=== PATIENT | female | born 1975 | race Caucasian/White ===

== ENCOUNTER → 2016-11-01 | Outpatient (CLI) | payer OTHER ==
--- NOTE | 2016-11-01 07:51 | US ---
EXAMINATION TYPE: US abdomen limited DATE OF EXAM: 11/01/2016 7:30 AM COMPARISON: NONE CLINICAL HISTORY: K59.09 Constipation. EXAM MEASUREMENTS: Liver Length: 14.5cm Gallbladder Wall: 0.1 cm CBD: 0.2 cm Right Kidney: 10.8 x 4.2 x 5.1 cm cm TECHNOLOGIST IMPRESSION: wnl Pancreas: wnl Liver: wnl Gallbladder: small 0.23 cm possible polyp non gravity dependent Evidence for sonographic Gomez's sign: no CBD: wnl Right Kidney: wnl IMPRESSION: 1. Possible tiny polyp or gallstone within the gallbladder.
== END | disposition home or self-care (01) ==
LOC: RADUSWWP 07:09
PROVIDERS: ATTEND Family Medicine
DX: K59.00 Constipation, unspecified (principal)
CPT/HCPCS: 76705

== ENCOUNTER 2016-12-09 06:02 | Day surgery (SDC) | payer OTHER ==
[2016-12-07 09:25] VITALS: BMI 32.9
[~2016-12-09 06:02] MED LIST: DEXAMETHASONE SOD PHOSPHATE 10 MG/ML 1 ML VIAL IV ONE; FAMOTIDINE 20 MG/2 ML VIAL IV PRN; HEPARIN SODIUM,PORCINE 5,000 UNIT/ML 1 ML VIAL SQ ONE; HYDROmorphone 1 MG/ML 1 ML SYRINGE IVP PRN; LIDOCAINE 1% 20 ML VIAL (10MG/ML) FOR IV START INTRADERMA PRN; MIDAZOLAM 2 MG/2 ML VIAL IV PRN; ONDANSETRON 4 MG/2 ML VIAL IVP ONE; SCOPOLAMINE 1.5MG/72HR PATCH TRANSDERM ONE; ceFAZolin 2 GM in SODIUM CHLORIDE 0.9% 100 ML IVPB ONE
[2016-12-09] MEDS: LACTATED RINGERS 1,000 ML IV SCH ×2 (07:08→07:09)
[2016-12-09] MEDS ORDERED: LIDOCAINE 1% 20 ML VIAL (10MG/ML) FOR IV START INTRADERMA ONE (07:10)
[2016-12-09] MEDS ORDERED: PROPOFOL 10 MG/ML 20 ML VIAL IV ONE (07:30)
[2016-12-09] MEDS ORDERED: SUCCINYLCHOLINE CHLORIDE 100 MG/5 ML SYR IV ONE (07:30)
[2016-12-09] MEDS ORDERED: HYDROmorphone (PF) 1 MG/ML ONE (07:30)
[2016-12-09] MEDS ORDERED: ROCURONIUM BROMIDE 10 MG/ML 10 ML VIAL IV ONE (07:30)
[2016-12-09] MEDS ORDERED: KETOROLAC 30 MG/ML 1 ML VIAL ONE (07:30)
[2016-12-09] MEDS ORDERED: GLYCOPYRROLATE 0.2 MG/ML 2 ML VIAL ONE (07:30)
[2016-12-09] MEDS ORDERED: MIDAZOLAM 2 MG/2 ML VIAL ONE (07:30)
[2016-12-09] MEDS ORDERED: LIDOCAINE 1% INJ 10MG/ML (20 ML MDV) ONE (07:30)
[2016-12-09] MEDS ORDERED: NEOSTIGMINE 1 MG/ML 10 ML VIAL ONE (07:30)
[2016-12-09] MEDS ORDERED: fentaNYL (PF) 50 MCG/ML 2 ML AMP ONE (07:30)
[2016-12-09] MEDS ORDERED: BUPIVACAIN-EPI 0.25%-1:200,000 30 ML VIAL SQ ONE ×2 (08:00→09:05)
--- NOTE | 2016-12-09 09:23 | P.OP ---
Date of Procedure: 12/09/16 Preoperative Diagnosis: bILIARY dyskinesia Postoperative Diagnosis: Biliary Dyskinesia Procedure(s) Performed: Robot assisted laparoscopic cholecystectomy Anesthesia: JD Surgeon: Delmy Funk Estimated Blood Loss (ml): 10 Pathology: other Condition: stable Disposition: PACU Indications for Procedure: intmermittent right upper quadrant pain Gall bladder polyp Reduced ef of 31% on HIDA scan -- Biliary dyskinesia Operative Findings: Distended gall bladder Chronic inflammatory adhesions Description of Procedure: Patient is a 41-year-old female who presented with right upper quadrant pain and a clinical diagnosis of chronic cholecystitis was made. After appropriate informed consent and answering all the patient's questions patient taken the operating placement position and given general anesthesia with endotracheal intubation. After an unsuccessful attempt to use the Veress needle for insufflation at the infraumbilical region left upper quadrant was identified and Veress needle was used to enter the abdominal cavity and insufflated to 15 mmHg after confirming its position with the drop test. Once the abdomen insufflated 5 mm Optiview was used to enter the abdominal cavity through the left upper quadrant. Three 8 mm ports were then placed for the robot in the left upper quadrant and right upper quadrant. The 12 mm port was placed just right lateral to the umblicus. Once ports were then placed the patient was placed in appropriate position of left side down and reverse Trendelenburg. The robot was docked and Prograsp was taken in arm 3, Cardiere was taken a in arm 2. Camera was through the 12 mm umbilical port site. And a hook cautery was taken in the arm 1. Gallbladder was retracted cephalad and superiorly. Inflammatory adhesions were taken down with the help of electrocautery. Appropriate critical view was obtained in cystic duct and artery were isolated. 2 clips proximally and 1 distally were plced in the artery and cystic duct and then and transected sharply with the help of scissors. The gallbladder was then taken off the gallbladder fossa with the help of electrocautery. Gallbladder was then placed in Endo Catch bag and removed through 12 port site after undocking the robot. Abdomen was then again visualized and completely irrigated and sucked dry. 2 extra clips that had fallen down were removed as well and accounted for. 12 mm port site was closed with the help of a Gregory June under direct laparoscopic view using 0 Vicryl. At this point the procedure was terminated and all ports were removed. Local anesthesia infiltrated into the incisions skin was closed with 4-0 Monocryl and Dermabond was applied. The right upper quadrant continued to bleed and inspite of elctrocautery bled. There for it was closed with a mattress 2 0 Nylon suture that stopped the bleeding effectively. Patient is tolerated the procedure well with no complications. She was extubated and taken to recovery room in stable condition.
[2016-12-09 09:34] VITALS: TEMP 97.6
[2016-12-09 10:35] VITALS: RESP 18
[2016-12-09 11:44] VITALS: BP 133/87; PULSE 88
== END 2016-12-09 13:00 | disposition home or self-care (01) ==
LOC: OR 06:02
PROVIDERS: ATTEND Surgery
DX: K81.1 Chronic cholecystitis (principal); K66.0 Peritoneal adhesions (postprocedural) (postinfection); K21.9 Gastro-esophageal reflux disease without esophagitis; Z79.899 Other long term (current) drug therapy; Z87.891 Personal history of nicotine dependence
CPT/HCPCS: 47562; 81025; 88304; J2250; J1644; J1100; J2710; J0690; J2405; J2001; J3010; J1885; J1170; J0330; J2704

== ENCOUNTER → 2021-01-12 | Outpatient (CLI) | payer OTHER ==
--- NOTE | 2021-01-14 08:21 | MM ---
Reason for exam: screening (asymptomatic). Last mammogram was performed 7 years ago. Physical Findings: A clinical breast exam by your physician is recommended on an annual basis and results should be correlated with mammographic findings. MG 3D Screening Mammo W/Cad Bilateral CC and MLO view(s) were taken. Prior study comparison: January 16, 2014, mammogram, performed at [facility]. The breast tissue is heterogeneously dense. This may lower the sensitivity of mammography. Focal asymmetry inner central right breast zone A. ASSESSMENT: Incomplete: need additional imaging evaluation, BI-RAD 0 RECOMMENDATION: Special view mammogram and ultrasound of the right breast. [facility] will attempt to contact patient to return for supplemental views and ultrasound.
== END | disposition home or self-care (01) ==
LOC: RADMAMWWP 08:34
PROVIDERS: ATTEND Obstetrics & Gynecology
DX: Z12.31 Encounter for screening mammogram for malignant neoplasm of breast (principal)
CPT/HCPCS: 77063; 77067

== ENCOUNTER → 2021-01-29 | Outpatient (CLI) | payer OTHER ==
--- NOTE | 2021-01-30 10:58 | MM ---
Reason for exam: additional evaluation requested from abnormal screening. Last mammogram was performed 1 month ago. History: Took hormonal contraceptives for 5 years beginning at age 23. Physical Findings: Nurse did not find any significant physical abnormalities on exam. MG 3D Work Up W/Cad RT Spot compression CC and spot compression MLO view(s) were taken of the right breast. Prior study comparison: January 12, 2021, bilateral MG 3d screening mammo w/cad. January 16, 2014, mammogram, performed at [facility]. The breast tissue is extremely dense which could obscure a lesion on mammography. No distinct mass persists on additional views. These results were verbally communicated with the patient and result sheet given to the patient on 01/29/21. ASSESSMENT: Negative, BI-RAD 1 RECOMMENDATION: Return to routine screening mammogram schedule for both breasts.
== END | disposition home or self-care (01) ==
LOC: RADMAMWWP 13:32
PROVIDERS: ATTEND Obstetrics & Gynecology
DX: R92.2 Inconclusive mammogram (principal)
CPT/HCPCS: 77061; 77065